=== PATIENT | female | born 1980 | race Caucasian/White ===

== ENCOUNTER 2018-02-16 07:07 | Outpatient (CLI) | payer OTHER ==
[~2018-02-16 07:07] MED LIST: IRON1TAB4 PO; MOTRIN800 MG PO
== END 2018-02-16 07:13 | disposition home or self-care (01) ==
LOC: SONOGRAMA 07:07
DX: E04.1 Nontoxic single thyroid nodule (principal)

== ENCOUNTER 2023-05-12 09:15 | Inpatient (IN) | payer OTHER ==
[~2023-05-12] VITALS: Ht 160 cm; Wt 79.4 kg
== END 2023-05-16 12:13 | disposition home or self-care (01) | DRG 743 ==
LOC: ADM 09:15 → O/R 05-14 05:26 → OB/GYN 05-14 05:26 → SURH 05-14 07:00 → EDSTATUS 05-14 09:15 → SURH 05-14 09:15 → CIR.AMB 05-14 09:15 → OB/GYN 05-14 11:45
PROVIDERS: ADMIT Obstetrics & Gynecology; ATTEND Obstetrics & Gynecology
PROC: 0UT70ZZ Resection of Bilateral Fallopian Tubes, Open Approach (ICD-10-PCS; 2023-05-14)
PROC: 0DN80ZZ Release Small Intestine, Open Approach (ICD-10-PCS; 2023-05-14)
PROC: 0UT90ZZ Resection of Uterus, Open Approach (ICD-10-PCS; principal; 2023-05-14 07:00)
DX: D25.9 Leiomyoma of uterus, unspecified (principal); Z20.822 Contact with and (suspected) exposure to COVID-19; N73.6 Female pelvic peritoneal adhesions (postinfective)